=== PATIENT | male | born 1990 | race Caucasian/White ===

== ENCOUNTER 2017-10-11 10:20 | Emergency (ER) | payer BC ==
[~2017-10-11] VITALS: Ht 190.5 cm; Wt 127.3 kg
[2017-10-11 12:40] VITALS: BP 149/78
== END 2017-10-11 12:41 | disposition home or self-care (01) | DRG 605 ==
LOC: ED 10:20
DX: S60.221A Contusion of right hand, initial encounter (principal); M25.531 Pain in right wrist; Y93.83 Activity, rough housing and horseplay; Y93.89 Activity, other specified; Y92.009 Unspecified place in unspecified non-institutional (private) residence as the place of occurrence of the external cause